=== PATIENT | female | born 1965 | race Caucasian/White ===

== ENCOUNTER → 2019-01-27 | Outpatient (CLI) | payer BC ==
--- NOTE | 2019-01-28 14:46 | RAD ---
EXAM: Left shoulder, 3 views. HISTORY: Decreased range of motion. COMPARISON: None. FINDINGS: 3 views of left shoulder obtained. There is no fracture, dislocation or subluxation. IMPRESSION: No acute osseous finding. Electronically signed by: Vonda Alexander MD (01/28/2019 2:43 PM) [facility]
== END | disposition home or self-care (01) ==
LOC: LAB 18:53
PROVIDERS: ATTEND Registered Nurse
DX: M25.512 Pain in left shoulder (principal)
CPT/HCPCS: 73030